=== PATIENT | male | born 1980 | race Hispanic/Latino ===

== ENCOUNTER 2025-08-29 11:21 | Emergency (ER) | payer SELFPAY ==
[~2025-08-29] VITALS: Ht 177.8 cm; Wt 88.5 kg
[2025-08-29 11:28] VITALS: TEMP 98.2
[2025-08-29 12:01] LABS: BASOPHILS % 0.6 % (0.0-1.0); EOSINOPHILS % 0.3 % (0.0-6.0); LYMPHOCYTES % 21.0 % (18.0-39.1); MONOCYTES % 5.8 % (4.4-11.3); NEUTROPHILS % 71.8 % (38.7-80.0); RED CELL DISTRIBUTION WIDTH 13.4 % (11.7-14.4)
[2025-08-29 12:21] LABS: EST GLOMERULAR FILTRATION RATE 93.0 ML/MIN (>=60)
[2025-08-29] MEDS: DEXAMETHASONE SOD PHOS 10 MG/1 ML VIAL IV ONE (12:25)
[2025-08-29 12:40] VITALS: PULSE 71; RESP 17; O2SAT 100
[2025-08-29] MEDS ORDERED: DEXAMETHASONE4 MG PO (12:59)
== END 2025-08-29 13:05 | disposition home or self-care (01) ==
LOC: ER 11:28
DX: H81.20 Vestibular neuronitis, unspecified ear (principal); R29.810 Facial weakness; R11.10 Vomiting, unspecified
CPT/HCPCS: 36415; 70450; 80053; 84484; 85025; 93005; 99284; J1100